=== PATIENT | female | born 1985 | race Caucasian/White ===

== ENCOUNTER 2021-09-04 18:02 | Emergency (ER) | payer OTHER ==
[~2021-09-04 18:02] MED LIST: CAL-MAG1 TAB PO; FISH OIL1000 MG PO; PRENATA3 PO; RHO (D) IMMUN300 MCG IM; VITAMIN D1000 UNIT PO
[2021-09-04 19:37] LABS: HEMOGLOBIN 13.3 g/dl (12.0-16.0); MEAN CELL VOLUME 84.7 fL CALC (80.0-100.0); MEAN CORPUSCULAR HGB 27.5 pG CALC (26.0-32.0); MEAN CORPUSCULAR HGB CONC 32.4 g/dL CAL (32.0-36.0); NEUT# 5.34 thou/uL (2.00-7.15); RED BLOOD COUNT 4.84 mill/uL (4.20-5.60); RED CELL DISTRI WIDTH 13.2 % (11.5-15.5)
[2021-09-04 19:42] LABS: URINE BILIRUBIN - DIPSTICK NEGATIVE (NEGATIVE); URINE BLOOD DIPSTICK TRACE-INTACT (NEGATIVE); URINE COLOR YELLOW; URINE GLUCOSE - DIPSTICK NEGATIVE (NEGATIVE); URINE KETONE NEGATIVE (NEGATIVE); URINE LEUK ESTERASE NEGATIVE (NEGATIVE); URINE PROTEIN - DIPSTICK NEGATIVE (NEG-TRACE); URINE SPECIFIC GRAVITY 1.015; URINE UROBILINOGEN - DIPSTICK 0.2 E.U./dL (0.2)
[2021-09-04 19:43] LABS: URINE NITRITE - DIPSTICK NEGATIVE (Negative)
[2021-09-04 19:53] LABS: D-DIMER 0.32 mg/L (0.19-0.60)
[2021-09-04 19:56] LABS: ACT PARTIAL THROMBO TIME 25.4 SECONDS (20.0-32.5); ALBUMIN 3.7 g/dL (3.2-5.0); ALKALINE PHOSPHATASE 54 u/l (38-126); ANION GAP 9 (6-22 (CALC)); BILIRUBIN, TOTAL 0.3 mg/dL (0.0-1.4); BUN 8 mg/dL (7-17); BUN/CREATININE RATIO 14 (12-20 (CALC)); CARBON DIOXIDE 25 mmol/l (22-30); CHLORIDE 110 mmol/l (95-108); CREATININE 0.6 mg/dL (0.5-1.0); GFR > 60 ML/MIN (>=60 (CALC)); GFR FOR AFR.AMER. > 60 ML/MIN (>=60 (CALC)); MAGNESIUM 1.8 mg/dL (1.6-2.3); POTASSIUM 3.4 mmol/l (3.5-5.1); PROTHROMBIN TIME 10.4 SECONDS (9.0-12.5); SGOT/AST 25 u/l (14-36); SODIUM 141 mmol/l (137-146); TOTAL PROTEIN 6.7 g/dL (6.3-8.2)
[2021-09-04 20:07] LABS: MYOGLOBIN 21 ng/mL (0 - 62)
[2021-09-04] MEDS ORDERED: TOPROL XL25 MG PO (21:48)
[2021-09-04 23:50] VITALS: BP 101/54
[2021-09-05] MEDS ORDERED: TOPROL XL25 MG PO (09:47)
== END 2021-09-04 23:50 | disposition home or self-care (01) ==
LOC: ED 18:02
PROVIDERS: Family Medicine
DX: U07.1 COVID-19 (principal); F41.9 Anxiety disorder, unspecified

== ENCOUNTER 2024-09-16 14:48 | Emergency (ER) | payer OTHER ==
[~2024-09-16] VITALS: Ht 167.6 cm; Wt 113.0 kg
[~2024-09-16 14:48] MED LIST changes: +TOPROL XL25 MG PO
[2024-09-16] MEDS ORDERED: AMOXICILLIN500 MG PO (15:40)
[2024-09-16] MEDS ORDERED: FLOXIN OTIC0.3 % AS (15:40)
[2024-09-16 15:57] VITALS: BP 131/83
== END 2024-09-16 15:58 | disposition home or self-care (01) ==
LOC: ED 14:48
DX: H66.92 Otitis media, unspecified, left ear (principal); H61.22 Impacted cerumen, left ear; F41.9 Anxiety disorder, unspecified